=== PATIENT | male | born 1950 | race Caucasian/White ===

== ENCOUNTER 2016-04-05 10:45 | Observation (INO) | payer OTHER, MEDICARE ==
--- NOTE | 2016-04-05 11:01 | EDPHY ---
H & P Stated Complaint: New onset afib; EKG in hand;sent from PCPs office Time Seen by Provider: 04/05/16 10:57 - Personal History Current Tetanus Diphtheria and Acellular Pertussis (TDAP): Yes - Medical/Surgical History Hx Diabetes: Yes Other PMH: pre-diabetic. HTN. cholesterol - Social History Smoking Status: Former smoker Constitutional: Initial Vital Signs Temperature (C) 36.6 C 04/05/16 10:45 Heart Rate 150 H 04/05/16 10:45 Respiratory Rate 16 04/05/16 10:45 Blood Pressure 125/92 H 04/05/16 10:45 O2 Sat (%) 98 04/05/16 10:45 O2 Delivery Mode Room Air O2 (L/minute) 15 Allergies/Adverse Reactions: No Known Allergies Allergy (Verified 04/05/16 10:51) Home Medications: Medication Instructions Recorded metFORMIN HCL [Glucophage] 500 mg PO BIDMEAL 09/14/12 Aspirin [Aspirin 81mg (*)] 81 mg PO DAILY 04/05/16 Atorvastatin Calcium [Lipitor 10 10 mg PO DAILY 04/05/16 mg (*)] Lisinopril [Zestril 10 mg (*)] 10 mg PO 04/05/16 Medical Decision Making ED Course/Re-evaluation: CHIEF COMPLAINT: Rapid heart rate. HISTORY OF PRESENT ILLNESS: The patient is a 66-year-old male who presents with rapid heart rate for the last few weeks. He was seen at his primary care provider earlier today where he had an EKG that showed abnormal atrial tachycardia so he was sent to the ED. He denies chest pain. He is feeling slightly dizzy. He reports having a GI illness on Monday that has resolved. He was in [place] earlier in March. REVIEW OF SYSTEMS: A 10 point review of systems was performed and is negative with the exception of the elements mentioned in the history of present illness. PHYSICAL EXAM: HR, BP, O2 Sat, RR. Temp noted General Appearance: Alert, well hydrated, appropriate, and non-toxic appearing. Head: Atraumatic without scalp tenderness or obvious injury Eyes: Pupils equal, round, reactive to light and accommodation, EOMI, no trauma , no injection. Ears: Clear bilaterally, no perforation, normal landmarks Nose: Atraumatic, no rhinorrhea, clear. Throat: There is no erythema or exudates, no lesions, normal tonsils, mucus membranes moist. Neck: Supple, 2+ carotid upstroke, nontender, no lymphadenopathy. Respiratory: No retractions, no distress, no wheezes, and no accessory muscle use. Lungs are clear to auscultation bilaterally. Cardiovascular: Regular rate and rhythm, no murmurs, rubs, or gallops. Bilateral carotid, radial, dorsalis pedis, and posterior tibial pulses intact. Good capillary refill all extremities. Gastrointestinal: Abdomen is soft, nontender, non-distended, no masses, no rebound, no guarding, no peritoneal signs. Musculoskeletal: Normal active ROM of all extremities, atraumatic. Neurological: Alert, appropriate, and interactive. The patient has normal DTRs and non-focal cranial nerves, motor, sensory, and cerebellar exam. Skin: No rashes, good turgor, no nodules on palpation. Past medical history: Prediabetes, hypertension, hypercholesterolemia. Past surgical history:Denies. Social history:Here alone. DIAGNOSTICS/PROCEDURES/CRITICAL CARE TIME: The 12 lead EKG was interpreted by myself. See hard copy and/or "tracemaster" electronic copy for interpretation. Atypical atrial tachycardia rate 151 with nonspecific IVCD. Post-adenosine EKG: The 12 lead EKG was interpreted by myself. See hard copy and /or "tracemaster" electronic copy for interpretation. Sinus rhythm rate 63. Study: PA and Lateral Chest X-ray Indication: Rapid aflutter. Results: I viewed the images myself on the PACS system. The radiologist interpretation is: 1. Clear lungs. No acute process. 2. No pneumothorax. DIFFERENTIAL DIAGNOSIS: The differential diagnosis includes but is not limited to atrial fibrillation, SVT, sinus tachycardia. MEDICAL DECISION MAKING: This is a 66-year-old male who presents from his primary care provider for new- onset rapid arrhythmia. He has had a rapid heart rate for the past couple of weeks. This is not associated with any chest symptoms such as pain or shortness of breath. On the EKG taken at his primary care provider there was a rapid arrhythmia seen that could represent new-onset atrial fibrillation. I am unsure exactly what this rhythm represents. He will be attached to a groundwater monitoring technician to better establish what this rhythm represents. His heart rate is 150. An IV was established and labs ordered. 1120: Adenosine 12mg IV administered. The rhythm strip shows atrial flutter. His heart rate is 160 after Adenosine. 1125: Patient converted into sinus rhythm. EKG obtained. Dr. Zepeda, cardiology, paged. 1137: Consulted with Jose De Jesus Carter of [facility]. He recommends Echocardiogram and TSH. 1218: Echocardiogram in progress. 1300: Consulted with Jose De Jesus Carter. He reports that the patient has been going in and out of atrial fib/flutter. He will consult with Dr. Lesley Zepeda about admission to [facility]. 1318: Dr. Zepeda, cardiology, will admit the patient to the [facility]. I spent a total of 40 minutes of critical care time including but not limited to obtaining history, performing a physical exam, ordering interventions and the bedside monitoring of those interventions, collecting and interpreting tests and discussion with consultants but not including time spent performing procedures. - Data Points Laboratory Results: Laboratory Results 04/05/16 11:00 04/05/16 11:00 04/05/16 04/05/16 04/05/16 11:01 11:00 11:00 WBC RBC Hgb POC Hgb 16.0 gm/dL gm/dL (14.5-17.3) Hct POC Hct 47 % % (42.8-50.6) MCV MCH MCHC RDW Plt Count MPV Neut % (Auto) Lymph % (Auto) [place] % (Auto) Eos % (Auto) Baso % (Auto) Nucleat RBC Rel Count Absolute Neuts (auto) Absolute Lymphs (auto) Absolute Monos (auto) Absolute Eos (auto) Absolute Basos (auto) Absolute Nucleated RBC Immature Gran % Immature Gran # D-Dimer 0.31 ug/mLFEU ug/mLFEU (0.00-0.50) POC Sodium 141 mEq/L mEq/L (134-144) Sodium POC Potassium 3.7 mEq/L mEq/L (3.3-5.0) Potassium POC Chloride 104 mEq/L mEq/L (96-108) Chloride Carbon Dioxide Anion Gap POC BUN 22 mg/dL mg/dL (7-23) BUN Creatinine POC Creatinine 1.2 mg/dL mg/dL (0.8-1.5) Estimated GFR Glucose POC Glucose 137 mg/dL H mg/dL (70-100) Calcium Troponin I TSH 2.640 uIU/mL uIU/mL (0.465-4.680) 04/05/16 04/05/16 11:00 11:00 WBC 6.51 10^3/uL 10^3/uL (3.80-9.50) RBC 4.85 10^6/uL 10^6/uL (4.40-6.38) Hgb 16.2 g/dL g/dL (13.7-17.5) POC Hgb Hct 45.6 % % (40.0-51.0) POC Hct MCV 94.0 fL fL (81.5-99.8) MCH 33.4 pg pg (27.9-34.1) MCHC 35.5 g/dL g/dL (32.4-36.7) RDW 11.9 % % (11.5-15.2) Plt Count 213 10^3/uL 10^3/uL (150-400) MPV 10.5 fL fL (8.7-11.7) Neut % (Auto) 63.8 % % (39.3-74.2) Lymph % (Auto) 19.4 % % (15.0-45.0) [place] % (Auto) 14.0 % H % (4.5-13.0) Eos % (Auto) 1.7 % % (0.6-7.6) Baso % (Auto) 0.8 % % (0.3-1.7) Nucleat RBC Rel Count 0.0 % % (0.0-0.2) Absolute Neuts (auto) 4.16 10^3/uL 10^3/uL (1.70-6.50) Absolute Lymphs (auto) 1.26 10^3/uL 10^3/uL (1.00-3.00) Absolute Monos (auto) 0.91 10^3/uL H 10^3/uL (0.30-0.80) Absolute Eos (auto) 0.11 10^3/uL 10^3/uL (0.03-0.40) Absolute Basos (auto) 0.05 10^3/uL 10^3/uL (0.02-0.10) Absolute Nucleated RBC 0.00 10^3/uL 10^3/uL (0-0.01) Immature Gran % 0.3 % % (0.0-1.1) Immature Gran # 0.02 10^3/uL 10^3/uL (0.00-0.10) D-Dimer POC Sodium Sodium 138 mEq/L mEq/L (134-144) POC Potassium Potassium 4.0 mEq/L mEq/L (3.5-5.2) POC Chloride Chloride 105 mEq/L mEq/L (97-110) Carbon Dioxide 23 mEq/l mEq/l (22-31) Anion Gap 10 mEq/L mEq/L (8-16) POC BUN BUN 22 mg/dL mg/dL (7-23) Creatinine 1.2 mg/dL mg/dL (0.7-1.3) POC Creatinine Estimated GFR > 60 Glucose 129 mg/dL H mg/dL (70-100) POC Glucose Calcium 9.5 mg/dL mg/dL (8.5-10.4) Troponin I < 0.012 ng/mL ng/mL (0-0.034) TSH Medications Given: Discontinued Medications Adenosine (Adenosine) 12 mg IVP EDNOW ONE Stop: 04/05/16 11:21 Last Admin: 04/05/16 11:20 Dose: 12 mg Aspirin (Aspirin) 325 mg PO EDNOW ONE Stop: 04/05/16 11:08 Last Admin: 04/05/16 12:00 Dose: 325 mg Sodium Chloride (Ns) 1,000 mls @ 0 mls/hr IV ONCE ONE PRN Reason: Wide Open Stop: 04/05/16 11:11 Last Admin: 04/05/16 11:10 Dose: 1,000 mls Sodium Chloride (Ns) 1,000 mls @ 0 mls/hr IV EDNOW ONE PRN Reason: Wide Open Stop: 04/05/16 12:28 Last Admin: 04/05/16 12:31 Dose: 1,000 mls Perflutren Lipid Microsphere (Definity) 1.1 mg IV ONCE ONE Stop: 04/05/16 12:31 Last Admin: 04/05/16 12:19 Dose: 1.1 mg Point of Care Test Results: 04/05/16 11:01 POC Sodium 141 POC Potassium 3.7 POC Chloride 104 POC BUN 22 POC Creatinine 1.2 POC Glucose 137 H Departure - Departure Dis[facility]: [facility] In[facility] Acute Clinical Impression: Atrial flutter Qualifiers: Atrial flutter type: unspecified Qualified Code(s): I48.92 - Unspecified atrial flutter Condition: Fair Referrals: Marli Fitzgerald MD [Primary Care Provider] - As per Instructions Report Scribed for: Raymond Walls Report Scribed by: Bernabe Roberson Date of Report: 04/05/16 Time of Report: 11:28
--- NOTE | 2016-04-05 11:04 | CPEKG ---
Heart Rate: 153 RR Interval: 392 P-R Interval: 74 QRSD Interval: 116 QT Interval: 288 QTC Interval: 460 P [place]: 259 QRS [place]: 66 T Wave [place]: 177 EKG Severity - ABNORMAL ECG - EKG Impression: ECTOPIC ATRIAL TACHYCARDIA EKG Impression: NONSPECIFIC INTRAVENTRICULAR CONDUCTION DELAY Electronically Signed By: Raymond Walls 05-Apr-2016 14:37:01
[2016-04-05] MEDS ORDERED: ASPIRIN 325 MG TAB PO ONE (11:07)
[2016-04-05] MEDS ORDERED: NS 1,000 ML IV ONE ×2 (11:10→12:27)
[2016-04-05 11:13] LABS: % IMMATURE GRANULYOCYTES 0.3 % (0.0-1.1); ABSOLUTE IMMATURE GRANULOCYTES 0.02 10^3/uL (0.00-0.10); ADD DIFF? NO; ADD MORPH? NO; ADD SCAN? NO; ATYPICAL LYMPHOCYTE FLAG 10 (0-99); FRAGMENT RBC FLAG 0 (0-99); HEMATOCRIT 45.6 % (40.0-51.0); HEMOGLOBIN 16.2 g/dL (13.7-17.5); LEFT SHIFT FLG 0 (0-99); LIPEMIA HEMOLYSIS FLAG 90 (0-99); MEAN CELL HEMOGLOBIN 33.4 pg (27.9-34.1); MEAN CELL HEMOGLOBIN CONCENTR. 35.5 g/dL (32.4-36.7); MEAN PLATELET VOLUME 10.5 fL (8.7-11.7); PLATELET CLUMPS FLAG 0 (0-99); PLATELET COUNT 213 10^3/uL (150-400); RED BLOOD CELL COUNT 4.85 10^6/uL (4.40-6.38); RED CELL DISTRIBUTION WIDTH 11.9 % (11.5-15.2)
[2016-04-05] MEDS ORDERED: ADENOSINE 6 MG/2 ML VIAL ONE (11:16)
[2016-04-05] MEDS ORDERED: ADENOSINE 6 MG/2 ML VIAL IVP ONE (11:20)
--- NOTE | 2016-04-05 11:25 | CPEKG ---
Heart Rate: 144 RR Interval: 417 QRSD Interval: 78 QT Interval: 312 QTC Interval: 483 QRS [place]: 56 T Wave [place]: 45 EKG Severity - ABNORMAL ECG - EKG Impression: ATRIAL FIBRILLATION EKG Impression: BORDERLINE PROLONGED QT INTERVAL Electronically Signed By: Raymond Walls 05-Apr-2016 14:37:01
--- NOTE | 2016-04-05 11:29 | CPEKG ---
Heart Rate: 63 RR Interval: 952 P-R Interval: 152 QRSD Interval: 92 QT Interval: 392 QTC Interval: 402 P [place]: 38 QRS [place]: 27 T Wave [place]: 54 EKG Severity - NORMAL ECG - EKG Impression: SINUS RHYTHM Electronically Signed By: Raymond Walls 05-Apr-2016 14:37:01
[2016-04-05 11:48] LABS: ANION GAP 10 mEq/L (8-16); CALCIUM 9.5 mg/dL (8.5-10.4); CARBON DIOXIDE 23 mEq/l (22-31); CHLORIDE 105 mEq/L (97-110); CREATININE 1.2 mg/dL (0.7-1.3); GLOMERULAR FILTRATION RATE > 60; GLUCOSE 129 mg/dL (70-100); SODIUM 138 mEq/L (134-144)
[2016-04-05 11:59] LABS: TROPONIN I < 0.012 ng/mL (0-0.034)
[2016-04-05] MEDS ORDERED: PERFLUTREN LIPID MICROSPHERES 1.1 MG/ML VIAL IV ONE (12:30)
[2016-04-05] MEDS ORDERED: METOPROLOL TARTRATE 25 MG TAB PO ONE (12:59)
[2016-04-05] MEDS ORDERED: METOPROLOL TARTRATE 25 MG TAB ONE (13:06)
[2016-04-05] MEDS ORDERED: ONDANSETRON DISINTEGRATING 4 MG TAB PO PRN (14:15)
[2016-04-05] MEDS ORDERED: ONDANSETRON 4 MG/2 ML VIAL IVP PRN (14:15)
[2016-04-05] MEDS ORDERED: ACETAMINOPHEN 325 MG TAB PO PRN (14:15)
[2016-04-05] MEDS ORDERED: TEMAZEPAM 15 MG CAP PO PRN (14:20)
--- NOTE | 2016-04-05 15:33 | GHP ---
DATE OF ADMISSION: 04/05/2016 CHIEF COMPLAINT: Accelerated heart rate. HISTORY OF PRESENT ILLNESS: The patient is a 66-year-old male known to our practice with past medic al history that includes hypertension, hypercholesteremia, diabetes (type 2), and subclinical CAD ba sed on a positive calcium scoring with an Agatston score of 173. Patient reports over the last 2 we eks having episodes of irregular heartbeats, reporting episodes coming on spontaneously, lasting for few minutes, and dissipating; reporting happening all times during the day or night. Does report f eeling a lump in his throat when symptoms occur, and also some dizziness. Denies any near-syncope o r syncopal events. Denies any chest pressure or shortness of breath. He reports today, he felt the symptoms worsen and decided to come to the emergency department for further evaluation. Upon arriv al, he was found to be in SVT with heart rate up to [address] Walls of Emergency Services, did give him an adenosine, and with slowing of the heart it did appear that the patient was in atrial f lutter. He was started on some diltiazem, and he spontaneously converted back to sinus rhythm, whic h had lasted for up to half an hour. Unfortunately, he continues to have what appears to be runs of atrial fibrillation now that can last up to 10 minutes with heart rates as high as to 128 beats per minute, again reporting mild lightheadedness. Patient reports a recent GI illness last Monday, w hich resolved by Monday. He also reports last evening of binge drinking, reporting 7 alcohol bevera ges throughout the evening. He denies any recent fevers, chills, or night sweats. Denies any ortho pnea, PND, edema, shortness of breath, near syncope, or syncopal events. The patient coincidentally is scheduled to undergo nuclear MPI study tomorrow afternoon at [facility]. PAST MEDICAL HISTORY: Includes: 1. Mild obesity. 2. Presumed subclinical CAD, based on cardiac calcium scoring, with an Agatston score of 173. 3. Diabetes. 4. Hypercholesteremia. 5. Hypertension. 6. Genital herpes. 7. Previous history of kidney stones. PAST SURGICAL HISTORY: Includes wisdom teeth extraction. FAMILY HISTORY: Patient reports significant family history of coronary artery disease, reporting fa ther had [place] and was recommended to have CABG, with which he never proceeded in his mid 70s. No othe r significant family history of early coronary artery disease. 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 He is . He has 2 adult so ns who are alive and well. He reports usually occasional drinker, with occasional episodes of binge drinking. He does report he uses medicinal marijuana for a shoulder injury; he reports a history o f smoking as a teenager and denies any illicit drug use. MEDICATIONS: At home include metformin 500 mg p.o. b.i.d., Aspirin 81 mg p.o. daily, atorvastatin 1 0 mg p.o. daily, and lisinopril 10 mg p.o. daily. REVIEW OF SYSTEMS: A 10-point review of systems done on this patient all negative except as mention ed above. PHYSICAL EXAMINATION: GENERAL APPEARANCE: Moderately obese male who is alert and oriente d to person, place, time, and situation; appears to be under no acute distress. VITAL SIGNS: [facility] vital signs are blood pressure of 125/92, heart rate currently 67 in sinus rhythm on the monitor, respirations 16, saturating 97% on room air. HEENT: Head is normocephalic. Lips and tongue are p ink and moist with no signs of cyanosis. Conjunctivae pink. NECK: Trachea is midline, +2 carotid pulses bilateral. No auscultated bruits. No jugular vein distention. RESPIRATORY: Lungs clear to auscultation; no rhonchi, rales or wheezes. No accessory muscle use. No intercostal muscle retrac tion noted. CARDIAC: Regular rate, regular rhythm, S1, S2, no S3, S4, gallops, murmur, or rubs. A BDOMEN: Soft, nontender. Bowel sounds x4 quadrants. No organomegaly. No palpable masses. SKIN: [place], warm, and dry. No cyanosis. No clubbing. No peripheral edema. VASCULAR: +2 carotids bila teral, +2 radials bilateral, +2 dorsal pedal and posterior tibial pulses bilateral. NEURO: Cranial nerves 2-12 grossly intact. LABORATORY STUDIES: Drawn today: WBC 6.51, hemoglobin of 16.2, hematocrit of 45.6, platelet count 213. D-dimer of 0.31. Sodium of 138, potassium 4.0, chloride 105, CO2 23, BUN 22, creatinine 1.2, glucose 129, calcium 9.5. Initial troponin less than 0.012. TSH 2.640. STUDIES: Initial electrocardiogram at the ER shows SVT, possible atrial tachycardia with ventricula r rate at 153 beats per minute. Repeated electrocardiogram at 1126 today shows sinus rhythm, normal axis; no ST or T-wave abnormalities suggestive of ischemia. [facility] shows no acute cardiopulmonary process. Preliminary echocardiogram shows normal LV systolic funct ion with normal ejection fraction. No significant structural heart disease. ASSESSMENT AND PLAN: 1. Atrial flutter/paroxysmal atrial fibrillation. Patient initially arrived in what appeared to be atrial flutter with ventricular rate up to 153 beats per minute. With adenosine, it was noted to b e atrial flutter. Patient converted after bolus of IV diltiazem. Unfortunately, within 30 minutes, he continues to go back and forth between atrial fibrillation and sinus rhythm. When in atrial fib rillation, he does have ventricular rate up to 123 BPM. Denies of any chest pain or symptoms sugges ting of ischemia, but does report lightheadedness. At this time, I would like to place him on p.o. metoprolol tartrate at 25 mg p.o. b.i.d. Due to this new onset and his multiple cardiac risk factor s, I would like to place him in the [facility] for overnight observation. Patient does have a significant CHADS-VASc score of 4 (over the age of 65, hypertension, diabetes, presumed coronary artery disease ). We have discussed risks and benefits with the possibility of thrombotic event, especially in lig ht that he appears to be having this going on for at least 2 weeks, and felt that it is in his best interest to be started on anticoagulation. We have discussed warfarin and the new novel drugs with risks and benefits. At this time, he has decided that he would like to attempt to be started on Iris bao. He has normal renal function, his weight is greater than 60 kg, and he is under the age of 80 , he is recommended to start on Eliquis at 5 mg p.o. twice daily. 2. Presumed coronary artery disease: Patient reports no chest pain. Echocardiogram showed normal left ventricular systolic function, EKG shows no ischemic changes, with new onset of atrial fibrilla tion. Patient is scheduled for a stress test tomorrow at [facility]. What I would like to do is cycle his troponins due to the new onset of his atrial fibrillation. If normal, then we will plan on discharging him and having him get the stress test as ordered at [facility] tomorrow afternoon . If his troponins do elevate, then consideration for cardiac catheterization. As mentioned above, he will be started on beta-reed. We will also continue him on baby aspirin at 81 mg p.o. daily. He has received aspirin in the emergency department. 3. Hypertension: His blood pressure is mildly elevated, but with the initial admission to the [facility] department, we will monitor and will restart him on his home lisinopril, and also on metoprolo l and continue to monitor. 4. Hyperlipidemia/hypercholesteremia: Patient with noted history of hypercholesteremia. Will cont inue his home dose of atorvastatin. 5. Noninsulin-dependent diabetes, type 2. Will continue patient on home dose of metformin. Will p tino on having a repeat glucose level in the a.m. 6. Deep vein thrombosis precautions: As mentioned above, patient will be started on Eliquis this e vening. We will also order knee-high PRASAD hose for him to wear while he is in bed. 7. Code status: Patient is a full code. Plan has been discussed with Dr. Zepeda. /[id number]/MODL
[2016-04-05] MEDS: APIXABAN 5 MG TAB PO SCH ×2 (15:46→20:15)
--- NOTE | 2016-04-05 17:19 | ECHO ---
[id number] + + [address] : : [place] [address] : : [phone] + + Adult Echocardiographic Report + -----+ :Name: WILLY CORREA LStudy Date: 04/05/2016 11:58 AM BP: 128/65 mmHg : : Hospital Admission Number: [id number] Layla n: ER: :: 1950 Gender: Male Height: 70 in : :Age: 66 yrs Race: WH Weight: 240 lb : :Reason For Study: chest pressure; aflutter : : BSA: 2.3 meters 2 : :History: atrial aflutter; chest pressure : + -----+ MMode/2D Measurements \T\ Calculations IVSd: 1.1 cm LVIDd: 4.5 cm FS: 27.9 % Ao root diam: LVPWd: 1.1 cm LVIDs: 3.2 cm EDV(Teich): 2.7 cm 91.2 ml LA dimension: ESV(Teich): 3.1 cm 41.7 ml EF(Teich): 54.3 % LVLd ap4: 8.4 cm SV(MOD-sp4): EDV(MOD-sp4): 56.0 ml 105.0 ml LVLs ap4: 7.9 cm ESV(MOD-sp4): 49.0 ml EF(MOD-sp4): 53.3 % Normal Measurement Values: + + :LVIDd (3.5-5.7cm) IVSd (0.6-1.1cm) LVPWd (0.6-1.1cm) Aortic Root (2.0-3.7cm)Left Atrium (1.5-4.0cm): :LV Vol(d) (76-115ml) LV Vol(s) (29-48ml) Ejec Fraction (50-65%)PV Gaston (0.6- 1.2m/s) TV [place] (0.4-1.0m/s) : :MV E [place] (0.8-1.0m/s)MV A [place] (0.3-1.0m/s)LVOT [place] (0.7-1.2m/s) Asc Ao [place] ( 0.9-1.8m/s) : + + Doppler Measurements \T\ Calculations MV E max gaston: Ao V2 max: LV V1 max: PA V2 max: 36.0 cm/sec 107.0 cm/sec 112.0 cm/sec 93.1 cm/sec MV A max gaston: Ao max P.6 mmHgLV V1 max PG: PA max P.8 cm/sec 5.0 mmHg 3.5 mmHg MV E/A: 0.63 MV dec time: 0.37 sec Left Ventricle The left ventricle is normal in size and function. There is mild concentric left ventricular hypertrophy. Ejection Fraction = 55%. No regional wall motion abnormalities noted. Right Ventricle The right ventricle is normal in size and function. Atria The left atrial size is normal. Right atrial size is normal. Mitral Valve The mitral valve is normal in structure and function. There is no mitral valve stenosis. There is no mitral regurgitation noted. Tricuspid Valve The tricuspid valve is normal in structure and function. There is no tricuspid stenosis. No tricuspid regurgitation. Aortic Valve The aortic valve is trileaflet. There is no aortic stenosis. There is no aortic insufficiency. Pulmonic Valve The pulmonic valve is not well visualized. Great Vessels The aortic root is not well visualized. Pericardium/Pleural There is no pericardial effusion. Conclusion A two-dimensional transthoracic echocardiogram with M-mode and Doppler was performed. The study was technically limited. .33mg of definity given to help endocardial definition. The left ventricle is normal in size and function. There is mild concentric left ventricular hypertrophy. Ejection Fraction = 55%. No significant valvular disease No prior echo Final Reading Physician: Dr Lesley Zepeda electronically signed on 04/05/2016 05:18 PM Ordering Physician: Raymond Walls Performed By: Inocencia Munson
[2016-04-05] MEDS ORDERED: ATORVASTATIN CALCIUM 10 MG TAB PO SCH (18:00)
[2016-04-05] MEDS: CHOLECALCIFEROL VIT D3 2,000 UNITS TAB/CAP PO SCH (19:11)
[2016-04-05] MEDS: OMEGA-3 FATTY ACIDS 1,000 MG CAP PO SCH ×2 (19:11→21:56)
[2016-04-05] MEDS: metFORMIN HCL 850 MG TAB PO SCH (19:12)
[2016-04-05] MEDS ORDERED: CALCIUM CARBONATE 500 MG CHEWABLE TAB PO PRN (21:34)
[2016-04-05] MEDS: METOPROLOL TARTRATE 25 MG TAB PO SCH (21:41)
[2016-04-06 05:52] LABS: ANION GAP 8 mEq/L (8-16); CALCIUM 8.5 mg/dL (8.5-10.4); CARBON DIOXIDE 20 mEq/l (22-31); CHLORIDE 108 mEq/L (97-110); GLOMERULAR FILTRATION RATE > 60; GLUCOSE 94 mg/dL (70-100); POTASSIUM 4.4 mEq/L (3.5-5.2); SODIUM 136 mEq/L (134-144)
[2016-04-06 07:51] VITALS: BP 108/74; RESP 19; TEMP 97.8; O2SAT 95
[2016-04-06] MEDS: METOPROLOL TARTRATE 25 MG TAB PO SCH (08:44)
[2016-04-06] MEDS: CHOLECALCIFEROL VIT D3 2,000 UNITS TAB/CAP PO SCH (08:45)
[2016-04-06] MEDS: OMEGA-3 FATTY ACIDS 1,000 MG CAP PO SCH (08:45)
[2016-04-06] MEDS: APIXABAN 5 MG TAB PO SCH (08:45)
[2016-04-06] MEDS: metFORMIN HCL 850 MG TAB PO SCH (08:46)
[2016-04-06 08:48] VITALS: PULSE 61
[2016-04-06] MEDS ORDERED: LISINOPRIL 10 MG TAB PO SCH (09:00)
[2016-04-06] MEDS ORDERED: MULTIVITAMINS 1 EACH TAB PO SCH (09:00)
[2016-04-06] MEDS ORDERED: ASCORBIC ACID 500 MG TAB PO SCH (09:00)
[2016-04-06] MEDS ORDERED: ASPIRIN 81 MG CHEWABLE TAB PO SCH (09:00)
--- NOTE | 2016-04-06 12:16 | GDS ---
ADMISSION DIAGNOSES: 1. Atrial flutter with rapid ventricular response. 2. Paroxysmal atrial fibrillation. 3. Hypertension. 4. Hyperlipidemia. 5. Subclinical coronary artery disease, based off of cardiac calcium scoring. 6. Noninsulin dependent diabetes. DISCHARGE DIAGNOSES: 1. Atrial flutter. 2. Paroxysmal atrial fibrillation. 3. Hypertension. 4. Hyperlipidemia. 5. Subclinical Coronary artery disease, based off of cardiac calcium scoring. 6. Noninsulin dependent diabetes. PROCEDURES DONE DURING HOSPITALIZATION: 1. Electrocardiogram. 2. Chest x-ray. 3. Echocardiogram. BRIEF HISTORY: Please see H and P. The patient is a 66-year-old male, known to our practice, with known history of hypertension, hyperlipidemia, and noninsulin dependent diabetes, with history of nieto bclinical CAD based off cardiac calcium scoring. He reports he had reported episodes of accelerated heart rate and palpitations over the last 2 weeks with some mild lightheadedness. No chest pain or pressure. He came to the Emergency Department for further evaluation. HOSPITAL COURSE: The patient was admitted through the Emergency Department, there Dr. Kavita rosa sed the patient's rhythm, which appeared to be SVT possibly atrial tachycardia with ventricular rate s up to 150 BPM. He was given adenosine and was noted to be in flutter. He was started on IV dilti azem. Following bolus, converted back into sinus rhythm. Unfortunately, within 30 minutes, he was having breakthrough runs of atrial fibrillation with rates up to 128 beats per minute. He continued to deny any chest pain or shortness of breath. He underwent echocardiogram, which showed normal LV systolic function with mild LVH. EF was estimated at 55%. No significant valvular heart disease. It was decided due to his continuing breakthrough episodes of atrial fibrillation and multiple cor morbidities, that he be monitored overnight. He did have cycle troponins x3, which were all negativ e. Throughout the evening he denied any chest pain or shortness of breath. He was noted to continu e to have small episodes of atrial fibrillation with heart rates up to 128 beats per minute, only la sting through the evening, but only lasting for less than 30 seconds. He has been up and walking in the unit, tolerating the metoprolol. Due to his CHADS-VASc score of 4 for age, hypertension, diabe lexy, and presumable coronary artery disease, he has been started on Eliquis therapy, with no adverse reaction. At the time of discharge, the patient reports no further episodes of palpitations. He i s feeling well. He coincidentally has a myocardial perfusion imaging scan stress test ordered for t his afternoon at [facility], for evaluation of his cardiac calcium scoring. PHYSICAL EXAM: GENERAL APPEARANCE: Medium built, moderately obese, male. He is alert an d oriented to person, place, time, and situation. Appears to be under no acute distress. VITAL SIG NS: blood pressure of 108/54, heart rate is sinus bradycardia, with a rate of 57 beats per minute, r espirations are 18, saturating 95% on room air, temperature 36.6 degrees Celsius. HEENT: Head is normocephalic. Lips and tongue are pink and moist with no signs of cyanosis. Conjunctivae pink. N NAVEEN: Trachea is midline, +2 carotid pulses bilateral. No auscultated bruits. No jugular vein dist ention. RESPIRATORY: Lungs clear to auscultation. No rhonchi, rales or wheezing noted. No access ory muscle use. No intercostal muscle retraction noted. CARDIAC: Regular rate, regular rhythm. S 1, S2. No S3, S4, rubs, gallops or murmur. ABDOMEN: Soft, nontender, bowel sounds x4 quadrants. No organomegaly. No palpable masses. SKIN: [place], warm, dry. No cyanosis. No clubbing. No perip heral edema. VASCULAR: +2 carotids bilateral, +2 radials bilateral, +1 dorsal pedal and posterior tibial pulses bilateral. NEURO: Cranial nerves 2-12 grossly intact. LABORATORY STUDIES: On admission, WBC was 6.51, hemoglobin of 16.2, hematocrit of 45.6, platelet co unt of 213, TSH was 2.640. The patient has had 3 troponins that have all been within normal limits. This morning electrolytes: Sodium 136, potassium 4.4, chloride 108, CO2 20, BUN 21, creatinine 1. 0, glucose 94, calcium 8.5. STUDIES: Electrocardiogram done yesterday at 11:28 showed sinus rhythm with first-degree AV block, leftward axis deviation. No acute ST or T-wave abnormalities suggestive of ischemia. Echocardiogram done yesterday showed LV of normal size and function, mild concentric LVH, EF 55%, no significant valvular heart disease, atriums both normal size. Chest x-ray showed no acute cardiopulmonary processes. DISCHARGE DISPOSITION: The patient will be discharged home in fair condition. He has been asked to perform no strenuous activities until MPI study done and followup office appointment. DISCHARGE MEDICATIONS: Please see discharge med reconciliation sheet. Note the patient, in additio n to his regular home medications, has been started on metoprolol tartrate 25 mg p.o. twice daily, a nd Eliquis 5 mg p.o. twice daily. The patient has been given a 30-day free card for his Eliquis. DISCHARGE INSTRUCTIONS: Full anticoagulation medication instructions went over with the patient, in cluding potential risks and benefits. He verbalized understanding and is wanting to proceed. The p saul is scheduled for a myocardial perfusion imaging stress test at [facility] this afternoon, which I would like him to take this afternoon. He has a followup appointment at our office on . He has been told that if he has any problems or concerns post discharge, he is to call our offic e or return to the hospital. He verbalizes understanding. Total time spent on discharge greater th an 30 minutes. /[id number]/MODL
== END 2016-04-06 11:15 | disposition home or self-care (01) ==
LOC: F1N 14:58
PROVIDERS: ADMIT Internal Medicine Cardiovascular Disease; ATTEND Internal Medicine Cardiovascular Disease
DX: I48.92 Unspecified atrial flutter (principal); I48.0 Paroxysmal atrial fibrillation; I10 Essential (primary) hypertension; E78.5 Hyperlipidemia, unspecified; E11.9 Type 2 diabetes mellitus without complications; Z87.891 Personal history of nicotine dependence; Z87.442 Personal history of urinary calculi; Z72.89 Other problems related to lifestyle; Z82.49 Family history of ischemic heart disease and other diseases of the circulatory system; Z79.84 Long term (current) use of oral hypoglycemic drugs
CPT/HCPCS: 71020; 93005; 96361; 96374; 99291; C8929; G0378; J0153; Q9957; 82947-QW

== ENCOUNTER → 2016-04-06 | Outpatient (CLI) | payer OTHER, MEDICARE | LOC: BHFA 13:00 | PROVIDERS: ATTEND Internal Medicine Cardiovascular Disease | DX: I25.10 Atherosclerotic heart disease of native coronary artery without angina pectoris (principal) | CPT/HCPCS: 78452; 93017; A9500; J2785 ==

== ENCOUNTER 2016-04-11 09:24 | Observation (INO) | payer OTHER, MEDICARE ==
[2016-04-11] MEDS ORDERED: diphenhydrAMINE 25 MG CAP PO ONE (09:27)
[2016-04-11] MEDS ORDERED: DIAZEPAM 5 MG TAB PO ONE (09:27)
[2016-04-11] MEDS ORDERED: FAMOTIDINE 20 MG TAB PO ONE (09:27)
[2016-04-11] MEDS ORDERED: ASPIRIN EC 325 MG TAB PO ONE (09:27)
[2016-04-11] MEDS ORDERED: NS 1,000 ML IV ONE (09:27)
--- NOTE | 2016-04-11 09:51 | CPEKG ---
Heart Rate: 48 RR Interval: 1250 P-R Interval: 160 QRSD Interval: 86 QT Interval: 472 QTC Interval: 422 P [place]: 37 QRS [place]: 44 T Wave [place]: 52 EKG Severity - OTHERWISE NORMAL ECG - EKG Impression: SINUS BRADYCARDIA Preliminary Awaiting MD Review
[2016-04-11] MEDS ORDERED: fentaNYL 100 MCG/2 ML INJ ONE (10:01)
[2016-04-11] MEDS ORDERED: HEPARIN 10,000 UNIT/10 ML MDV ONE (10:01)
[2016-04-11] MEDS ORDERED: VERAPAMIL 5 MG/2 ML VIAL ONE (10:01)
[2016-04-11] MEDS ORDERED: MIDAZOLAM 2 MG/2 ML VIAL ONE ×2 (10:01)
[2016-04-11] MEDS ORDERED: LIDOCAINE 1% 30 ML SDV ONE (10:01)
[2016-04-11] MEDS ORDERED: IOPAMIDOL (ISOVUE-370) 150 ML BTL IV ONE (10:02)
[2016-04-11 10:15] LABS: % IMMATURE GRANULYOCYTES 0.6 % (0.0-1.1); ABSOLUTE IMMATURE GRANULOCYTES 0.04 10^3/uL (0.00-0.10); ADD DIFF? NO; ADD MORPH? NO; ADD SCAN? NO; ATYPICAL LYMPHOCYTE FLAG 80 (0-99); FRAGMENT RBC FLAG 0 (0-99); HEMATOCRIT 40.5 % (40.0-51.0); HEMOGLOBIN 14.2 g/dL (13.7-17.5); LEFT SHIFT FLG 0 (0-99); LIPEMIA HEMOLYSIS FLAG 90 (0-99); MEAN CELL HEMOGLOBIN 32.9 pg (27.9-34.1); MEAN CELL HEMOGLOBIN CONCENTR. 35.1 g/dL (32.4-36.7); MEAN CELL VOLUME 93.8 fL (81.5-99.8); MEAN PLATELET VOLUME 10.1 fL (8.7-11.7); PLATELET CLUMPS FLAG 0 (0-99); PLATELET COUNT 242 10^3/uL (150-400); RED BLOOD CELL COUNT 4.32 10^6/uL (4.40-6.38); RED CELL DISTRIBUTION WIDTH 11.9 % (11.5-15.2)
[2016-04-11 10:19] LABS: INR 1.05 (0.83-1.16); PROTIME(PATIENT) 13.6 SEC (12.0-15.0)
[2016-04-11 10:35] LABS: ANION GAP 9 mEq/L (8-16); CALCIUM 9.2 mg/dL (8.5-10.4); CARBON DIOXIDE 24 mEq/l (22-31); CHLORIDE 108 mEq/L (97-110); CHOLESTEROL 110 mg/dL (140-220); CHOLESTEROL/HDL RATIO 2.82 RATIO (1.00-4.97); CREATININE 1.1 mg/dL (0.7-1.3); GLOMERULAR FILTRATION RATE > 60; GLUCOSE 108 mg/dL (70-100); HIGH DENSITY LIPOPROTEIN 39 mg/dL (40-65); LDL/HDL RATIO 1.38 RATIO (1.00-3.64); LOW DENSITY LIPOPROTEIN 54 mg/dL (80-100); MAGNESIUM 2.2 mg/dL (1.6-2.3); NON-HIGH DENSITY LIPOPROTEIN 71 mg/dL (90-129); POTASSIUM 4.6 mEq/L (3.5-5.2); SODIUM 141 mEq/L (134-144); TRIGLYCERIDE 85 mg/dL (40-150); VERY LOW DENSITY LIPOPROTEINS 17 mg/dL (8-25)
[2016-04-11] MEDS ORDERED: PRASUGREL HCL 10 MG TAB ONE (11:53)
--- NOTE | 2016-04-11 12:12 | PDDXCAT ---
Diagnostic Cath Note - . Date: 04/11/16 Intervention: Drug eluting stent implantation per below *Procedure Access: left radial (a plethysmography trace assisted Raffi's Test was used to document dual artery supply to the hand and index finger prior to access). Procedure: 1. selective coronary angiography 2. left heart catheterization 3. left ventriculogram 4. drug-eluting stent implantation in the mid left anterior descending artery Indication: Known coronary artery disease with abnormal Lexiscan myocardial perfusion imaging study (small sized mild intensity reversible apical defect consistent with ischemia). *Materials Left Heart Cath size: 5F Left Heart Cath materials: JL3.5, JR4.0, pigtail, J [place] Wire, 3.0 x 16 mm Synergy drug eluting stent, [place] Guide Wire *Findings-Selective Coronary Angiography LM: The left main is ~5 mm in size and bifurcates into an LAD and circumflex system. No flow-limiting disease is identified. LAD: The proximal LAD is ~3 mm in size with an 83% plaque area stenosis in the mid LAD proper with GIORGIO III flow. This lesion was repaired with a 3.0 x 16 mm Synergy drug eluting stent as outlined below. LCX: The proximal left circumflex is ~2.75 mm in size without evidence of flow- limiting coronary artery disease and GIORGIO III flow throughout. RCA: The right coronary artery is dominant and ~3.5 mm in size. There is a 40-50 % distal RCA lesion with GIORGIO III flow. *Findings-Left Heart Catheterization EDP: 30 mmHg LVEF: 60% Wall motion analysis: There is mild anterolateral hypokinesis on left ventriculogram. The visualized portion of the thoracic aorta appears normal in size without colby evidence of aneurysm or dissection. *Intervention Intervention: A 5 [place] JL3.5 guiding catheter was used for guide catheter support. A 0.014" [place] Guide Wire was advanced across the mid LAD lesion in question under direct fluoroscopic and angiographic guidance. A 3.0 x 16 mm Synergy drug eluting stent was placed in the mid LAD and serially inflated to a maximum of 16 [place] of pressure. S/p stent implantation, a 3.25 x 8 mm [place] Emerge balloon was inserted into the region of stent implantation and used to post- dilate the lesion to 16 [place] of pressure. The balloon was removed with excellent angiographic results with 5% residual stenosis and GIORGIO III flow. *Summary Complications: None Estimated blood loss: <50ml Closure method: TR Band Assessment/Conclusion: 1. [place] [place] vessel coronary artery disease including 83% mid LAD lesion and 40-50 % distal RCA lesion. 2. Reperfusion of the LAD with implantation of 3.0 x 16 mm Synergy drug eluting stent and post dilation with a non compliant [place] Emerge balloon (83% plaque area stenosis via QCA with GIORGIO III flow pre-stent implantation; 5% residual stenosis with GIORGIO III flow post-stent implantation). 3.. Mild anterolateral hypokinesis on left ventriculogram with normal ejection fraction at 60% and elevated LVEDP at 30 mmHg The patient will need to be on dual antiplatelet therapy with the use of ASA and Effient for at least 1 year s/p stent implantation. The patient's coronary artery disease should be managed with daily statin therapy to achieve a non-HDL cholesterol <100 mg/dL. Lifestyle changes to achieve a 15-20 pound weight loss and cardiac rehab are also recommended. Patient Problems: Problems Problem Status Onset Atrial flutter Acute
[2016-04-11] MEDS ORDERED: ACETAMINOPHEN 325 MG TAB PO PRN ×2 (12:13→20:35)
[2016-04-11] MEDS ORDERED: LORazepam 2 MG/ML INJ IVP PRN (12:13)
[2016-04-11] MEDS ORDERED: ATROPINE SULFATE 1 MG/10 ML SYR IVP PRN (12:13)
[2016-04-11] MEDS ORDERED: TEMAZEPAM 15 MG CAP PO PRN (12:13)
[2016-04-11] MEDS ORDERED: PRASUGREL HCL 10 MG TAB PO ONE (12:13)
[2016-04-11] MEDS ORDERED: ONDANSETRON DISINTEGRATING 4 MG TAB PO PRN (12:13)
[2016-04-11] MEDS ORDERED: ONDANSETRON 4 MG/2 ML VIAL IVP PRN (12:13)
[2016-04-11] MEDS ORDERED: NITROGLYCERIN 0.4 MG BTL SL PRN (12:13)
[2016-04-11] MEDS ORDERED: NS 1,000 ML IV SCH (12:15)
--- NOTE | 2016-04-11 13:13 | CPEKG ---
Heart Rate: 47 RR Interval: 1277 P-R Interval: 176 QRSD Interval: 88 QT Interval: 492 QTC Interval: 435 P [place]: 30 QRS [place]: 43 T Wave [place]: 51 EKG Severity - OTHERWISE NORMAL ECG - EKG Impression: SINUS BRADYCARDIA Preliminary Awaiting MD Review
[2016-04-11 19:28] VITALS: RESP 18
[2016-04-11] MEDS ORDERED: ATORVASTATIN CALCIUM 10 MG TAB PO SCH (20:35)
[2016-04-11] MEDS: METOPROLOL TARTRATE 25 MG TAB PO SCH (21:08)
[2016-04-11] MEDS: CHOLECALCIFEROL VIT D3 2,000 UNITS TAB/CAP PO SCH (21:08)
[2016-04-11] MEDS: OMEGA-3 FATTY ACIDS 1,000 MG CAP PO SCH (21:08)
[2016-04-12 04:37] LABS: % IMMATURE GRANULYOCYTES 0.6 % (0.0-1.1); ABSOLUTE IMMATURE GRANULOCYTES 0.05 10^3/uL (0.00-0.10); ADD DIFF? NO; ADD MORPH? NO; ADD SCAN? NO; ATYPICAL LYMPHOCYTE FLAG 30 (0-99); FRAGMENT RBC FLAG 0 (0-99); HEMATOCRIT 41.1 % (40.0-51.0); HEMOGLOBIN 14.2 g/dL (13.7-17.5); LEFT SHIFT FLG 0 (0-99); LIPEMIA HEMOLYSIS FLAG 90 (0-99); MEAN CELL HEMOGLOBIN 33.5 pg (27.9-34.1); MEAN CELL HEMOGLOBIN CONCENTR. 34.5 g/dL (32.4-36.7); MEAN CELL VOLUME 96.9 fL (81.5-99.8); MEAN PLATELET VOLUME 10.5 fL (8.7-11.7); PLATELET CLUMPS FLAG 0 (0-99); PLATELET COUNT 241 10^3/uL (150-400); RED BLOOD CELL COUNT 4.24 10^6/uL (4.40-6.38)
[2016-04-12 04:58] LABS: ANION GAP 10 mEq/L (8-16); ASPARTATE AMINOTRANSFERASE 20 IU/L (17-59); BILIRUBIN,TOTAL 0.8 mg/dL (0.1-1.4); CALCIUM 9.1 mg/dL (8.5-10.4); CARBON DIOXIDE 24 mEq/l (22-31); CHLORIDE 108 mEq/L (97-110); CREATININE 1.1 mg/dL (0.7-1.3); GLOMERULAR FILTRATION RATE > 60; GLUCOSE 94 mg/dL (70-100); LACTATE DEHYDROGENASE 554 IU/L (313-618); MAGNESIUM 2.3 mg/dL (1.6-2.3); POTASSIUM 4.8 mEq/L (3.5-5.2); SODIUM 142 mEq/L (134-144)
[2016-04-12] MEDS: CHOLECALCIFEROL VIT D3 2,000 UNITS TAB/CAP PO SCH (07:54)
[2016-04-12] MEDS: OMEGA-3 FATTY ACIDS 1,000 MG CAP PO SCH (07:54)
[2016-04-12] MEDS: METOPROLOL TARTRATE 25 MG TAB PO SCH (07:55)
[2016-04-12 07:56] VITALS: BP 144/70; PULSE 55; TEMP 98; O2SAT 96
--- NOTE | 2016-04-12 08:48 | CPEKG ---
Heart Rate: 57 RR Interval: 1053 P-R Interval: 140 QRSD Interval: 88 QT Interval: 440 QTC Interval: 429 P [place]: 42 QRS [place]: 54 T Wave [place]: 56 EKG Severity - NORMAL ECG - EKG Impression: SINUS RHYTHM Preliminary Awaiting MD Review
[2016-04-12] MEDS ORDERED: ASPIRIN EC 325 MG TAB PO SCH (09:00)
[2016-04-12] MEDS ORDERED: ASCORBIC ACID 500 MG TAB PO SCH (09:00)
[2016-04-12] MEDS ORDERED: PRASUGREL HCL 10 MG TAB PO SCH (09:00)
[2016-04-12] MEDS ORDERED: MULTIVITAMINS 1 EACH TAB PO SCH (09:00)
[2016-04-12] MEDS ORDERED: ASPIRIN 81 MG CHEWABLE TAB PO SCH (09:00)
[2016-04-12] MEDS ORDERED: LISINOPRIL 10 MG TAB PO SCH (09:00)
--- NOTE | 2016-04-12 16:21 | GDS ---
ADMISSION DIAGNOSES: 1. Known coronary artery disease. 2. Abnormal nuclear stress test. 3. Planned cardiac angiogram with possible percutaneous coronary intervention. DISCHARGE DIAGNOSES: 1. Coronary artery disease. 2. Status post cardiac angiogram with percutaneous coronary intervention to the mid left anterior descending. 3. Hypertension. COURSE OF HOSPITALIZATION: This gentleman had a nuclear treadmill stress test that was positive. He was set up for a cardiac angiogram with Dr. Yoel Hernandez for April 11, 2016. He was taken to the cardiac laboratory assistant by Dr. Yoel Hernandez, where he found a mid LAD lesion, 83% stenosis with successful placement of a Synergy drug-eluting stent. He was then taken to PCU, where he was observed overnight on telemetry. He has not had any arrhythmias. He has been up ambulating in the guillen. He has had no chest pain or shortness of breath, status post stent placement. At this time, he currently is stable for discharge. DISCHARGE MEDICATIONS: He will go home on Effient 10 mg 1 tablet daily, Eliquis 5 mg twice daily, herbal supplements 1 daily, [place]-3 fatty acids 1000 mg 3 times a day, multivitamin 1 daily, vitamin D3 2000 units twice daily, vitamin C 500 mg daily, acetaminophen 325 mg 1 tablet every 4 hours as needed for pain not to exceed 3 g daily, nitroglycerin 0.4 mg sublingual 1 tablet sublingually every 5 minutes x3, aspirin 325 mg daily, Glucophage 850 mg twice daily not to be started until April 13 evening meal, metoprolol 25 mg twice daily, lisinopril 10 mg daily, Lipitor 10 mg daily. ALLERGIES: He has no known allergies. PHYSICAL EXAMINATION: VITAL SIGNS: On day of discharge, blood pressure 144/70 , heart rate 55 and regular, oxygen saturation 96%, temperature 36.7. CARDIAC: Heart rate regular. No murmurs, rubs, or gallops. RESPIRATORY: Lung sounds are clear to auscultation. No wheezes, rales, or rhonchi. SKIN: Left radial wrist site is intact with no bleeding, induration. EXTREMITIES: 2+ pulses radial and ulnar, good distal capillary re-flow. Peripheral pulses 2+ bilateral. REPORTS: Cardiac angiogram 04/11/2016: Left heart catheterization with placement of a drug-eluting stent to the mid left anterior descending artery. Findings: Left main, the left main showed no flow-limiting disease. LAD, proximal LAD showed 83% plaque area of stenosis in the mid LAD. Lesion was repaired with Synergy drug-eluting stent. Left circumflex, no evidence of flow- limiting coronary artery disease. RCA 40% to 50% distal RCA lesion. LVEF 60%. EKG on 04/12/2016 showed a sinus bradycardia with a rate of 57. Normal EKG. DISCHARGE PLAN: 1. He will be discharged home with followup in 7-[address] Yoel Hernandez. 2. Wrist instructions were provided verbally and written. No heavy lifting, pushing, pulling with left arm for 72 hours. 3. Recommend participation in cardiac rehab program. 4. Call office should there be any questions or concerns. At this time, he currently is stable for discharge. /[id number]/MODL MTDD
== END 2016-04-12 12:52 | disposition home or self-care (01) ==
LOC: FCATH 09:24 → F2W 12:20
PROVIDERS: ADMIT Internal Medicine Cardiovascular Disease; ATTEND Internal Medicine Cardiovascular Disease
PROC: B2111ZZ Fluoroscopy of Multiple Coronary Arteries using Low Osmolar Contrast (ICD-10-PCS; principal; 2016-04-11)
PROC: B2151ZZ Fluoroscopy of Left Heart using Low Osmolar Contrast (ICD-10-PCS; principal; 2016-04-11)
PROC: 02703ZZ Dilation of Coronary Artery, One Artery, Percutaneous Approach (ICD-10-PCS; principal; 2016-04-11)
PROC: 027034Z Dilation of Coronary Artery, One Artery with Drug-eluting Intraluminal Device, Percutaneous Approach (ICD-10-PCS; principal; 2016-04-11)
PROC: 4A023N7 Measurement of Cardiac Sampling and Pressure, Left Heart, Percutaneous Approach (ICD-10-PCS; principal; 2016-04-11)
DX: I25.10 Atherosclerotic heart disease of native coronary artery without angina pectoris (principal); R94.39 Abnormal result of other cardiovascular function study; I10 Essential (primary) hypertension; E78.00 Pure hypercholesterolemia, unspecified; R73.03 Prediabetes; I48.3 Typical atrial flutter; I48.0 Paroxysmal atrial fibrillation; E66.9 Obesity, unspecified; Z68.34 Body mass index [BMI] 34.0-34.9, adult; Z87.891 Personal history of nicotine dependence; Z87.442 Personal history of urinary calculi; Z86.010 Personal history of colon polyps; Z79.82 Long term (current) use of aspirin; Z79.01 Long term (current) use of anticoagulants
CPT/HCPCS: 93005; 93458; C1725; C1769; C1874; C1887; C9600; J1644; J2250; J3010; Q9967